=== PATIENT | male | born 1985 | race Caucasian/White ===

== ENCOUNTER 2022-04-26 21:06 | Emergency (ER) | payer SELFPAY ==
[2022-04-26] MEDS ORDERED: Acetaminophen 500 MG Tab PO ONE (21:46)
[2022-04-26] MEDS ORDERED: Ketorolac 30 MG/ML SDV IVPUSH ONE (21:46)
[2022-04-26] MEDS ORDERED: Ondansetron 4 MG/2 ML SDV IVPUSH ONE (21:46)
[2022-04-26] MEDS ORDERED: Sodium Chloride 0.9% 1,000 ML IV ONE (21:46)
[2022-04-26] MEDS ORDERED: HYDROmorphone 1 MG/ML Syringe IVPUSH ONE (21:46)
[2022-04-26] MEDS ORDERED: Piperacillin/Tazobactam 4.5 GM in Sodium Chloride 0.9% 100 ML IV ONE (21:49)
[2022-04-26 22:34] LABS: CARBON DIOXIDE,CO2 26.2 mmol/L (21.0-32.0); POTASSIUM,K 3.9 mmol/L (3.5-5.1)
[2022-04-26 22:47] LABS: CORONAVIRUS COVID-19 NAA NEGATIVE (NEGATIVE); INFLUENZA A NAA NEGATIVE (NEGATIVE); INFLUENZA B NAA NEGATIVE (NEGATIVE)
[2022-04-26] MEDS ORDERED: Iopamidol 755 Mg/ML 100 ML Bottle IVPUSH ONE (22:49)
[2022-04-26] MEDS ORDERED: Lactated Ringers 1,000 ML IV STA (23:23)
[2022-04-26 23:37] LABS: HEMOGLOBIN A1C 6.2 %
[2022-04-27] MEDS ORDERED: Ciprofloxacin/Dexamethasone 0.3-0.1% Otic Susp 7.5 ML Bottle EARLF STA (00:13)
[2022-04-27] MEDS ORDERED: Amoxicillin/Clavulanate K 875-125 MG Tab PO STA (00:14)
== END 2022-04-27 02:06 | disposition home or self-care (01) ==
LOC: MW.ED 21:06
DX: H60.22 Malignant otitis externa, left ear (principal); H70.92 Unspecified mastoiditis, left ear; Z79.899 Other long term (current) drug therapy; Z20.822 Contact with and (suspected) exposure to COVID-19
CPT/HCPCS: 0240U; 36415; 70487; 80053; 83036; 83605; 85025; 85652; 86140; 87040; 96365; 96375; 99284; A9270; J1170; J1885; J2405; J2543; J7030; Q9967; 99283